=== PATIENT | male | born 1995 | race Two or more races ===

== ENCOUNTER 2017-10-08 10:42 | Emergency (ER) | payer MEDICAID, OTHER ==
[~2017-10-08] VITALS: Ht 177.8 cm; Wt 65.0 kg
[2017-10-08 18:42] VITALS: BP 116/62
== END 2017-10-08 20:20 | disposition left against medical advice (07) ==
LOC: ER 11:52
DX: R05 Cough (principal)
CPT/HCPCS: 71010; 99283

== ENCOUNTER 2018-07-02 22:18 | Emergency (ER) | payer MEDICAID, OTHER ==
[~2018-07-02] VITALS: Ht 177.8 cm; Wt 68.0 kg
[2018-07-03] MEDS ORDERED: KETOROLAC 60MG/2ML VIAL IM ONE (01:00)
[2018-07-03] MEDS ORDERED: BACITRACIN ZINC OINT UDPKT TOP ONE ×2 (01:00→02:30)
[2018-07-03] MEDS ORDERED: LIDOCAINE HCL/PF 1% 10 MG/ML 5ML VIAL IJ ONE (02:30)
[2018-07-03 04:49] VITALS: BP 122/80
== END 2018-07-03 05:01 | disposition home or self-care (01) ==
LOC: ER 22:18
DX: S61.211A Laceration without foreign body of left index finger without damage to nail, initial encounter (principal); W25.XXXA Contact with sharp glass, initial encounter; Y93.89 Activity, other specified; Y92.89 Other specified places as the place of occurrence of the external cause; F17.210 Nicotine dependence, cigarettes, uncomplicated; F12.90 Cannabis use, unspecified, uncomplicated; R03.0 Elevated blood-pressure reading, without diagnosis of hypertension
CPT/HCPCS: 12002; 73130; 96372; 99284; J1885; J3490; X7700; Z7610

== ENCOUNTER 2022-01-13 20:04 | Emergency (ER) | payer MEDICAID ==
[~2022-01-13] VITALS: Ht 180.3 cm; Wt 70.6 kg
[2022-01-13 20:14] VITALS: BP 128/64
[2022-01-13] MEDS ORDERED: ACETAMINOPHEN 325MG TABLET PO STA (23:12)
[2022-01-13] MEDS ORDERED: ONDANSETRON 4MG ODT PO STA (23:12)
[2022-01-13] MEDS ORDERED: SODIUM CHLORIDE 0.9% 1,000 ML IV ONE (23:15)
[2022-01-13] MEDS ORDERED: FAMOTIDINE 20MG/2ML VIAL IV ONE (23:15)
== END 2022-01-13 23:20 | disposition left against medical advice (07) ==
LOC: ER 20:04
DX: Z53.21 Procedure and treatment not carried out due to patient leaving prior to being seen by health care provider (principal)
CPT/HCPCS: J7030